=== PATIENT | female | born 1975 | race Caucasian/White ===

== ENCOUNTER 2019-07-04 21:02 | Emergency (ER) | payer MEDICARE, MEDICAID ==
--- NOTE | 2019-07-04 21:56 | EDM.PDOC ---
ED HPI GENERAL MEDICAL PROBLEM - General Chief Complaint: Respiratory Problem Stated Complaint: SOB Time Seen by Provider: 07/04/19 21:10 Source of Information: Reports: Patient, EMS History Limitations: Reports: No Limitations - History of Present Illness INITIAL COMMENTS - FREE TEXT/NARRATIVE: 44-year-old female arrives by ambulance with persistent shortness of breath. She was seen in the clinic a few days ago, started on antibiotic and prednisone. She doesn't feel like she is improving and wanted to be seen. She lives in a snf in the [facility]. No fevers or chills. Onset: Gradual Duration: Day(s): (Symptoms for the last 4-5 days) Associated Symptoms: Reports: Cough, Shortness of Breath. Denies: Fever/Chills , Headaches Anterior Chest Pain Score (Numeric/FACES): 5 - Related Data Allergies Allergy/AdvReac Type Severity Reaction Status Date / Time amoxicillin Allergy Cannot Verified 07/04/19 21:47 Remember cephalexin [From Keflex] Allergy Cannot Verified 07/04/19 21:47 Remember chlorhexidine Allergy Cannot Verified 07/04/19 21:47 Remember clindamycin Allergy Cannot Verified 07/04/19 21:47 Remember NSAIDS (Non-Steroidal Allergy Cannot Verified 07/04/19 21:47 Anti-Inflamma Remember olanzapine [From Zyprexa] Allergy Cannot Verified 07/04/19 21:47 Remember Penicillins Allergy Cannot Verified 07/04/19 21:47 Remember quetiapine [From Seroquel] Allergy Cannot Verified 07/04/19 21:47 Remember Sulfa (Sulfonamide Allergy Cannot Verified 07/04/19 21:47 Antibiotics) Remember valproic acid Allergy Cannot Verified 07/04/19 21:47 Remember varenicline [From Chantix] Allergy Cannot Verified 07/04/19 21:47 Remember Home Meds: Home Meds Adapalene [Differin 0.1% Crm] 1 applic TOP BEDTIME 07/04/19 [History] Albuterol Sulfate [Proair Respiclick] 2 puff IH Q4H PRN 07/04/19 [History] Azithromycin [Zithromax] 250 mg PO DAILY 07/04/19 [History] Cholecalciferol (Vitamin D3) [Vitamin D3] 1,000 unit PO DAILY 07/04/19 [History] Dexlansoprazole [Dexilant] 60 mg PO DAILY 07/04/19 [History] Docusate Sodium [Colace] 200 mg PO DAILY 07/04/19 [History] Fexofenadine [Fexofenadine HCl] 180 mg PO BEDTIME 07/04/19 [History] Fluocinonide [Lidex 0.05% Oint] 1 applic TOP BID 07/04/19 [History] Fluticasone Propionate [24 Hour Allergy Relief] 1 spray NS BID 07/04/19 [History ] Fluticasone/Salmeterol [Advair 100-50] 1 puff INH BID 07/04/19 [History] Gabapentin [Neurontin] 300 - 600 mg PO BID 07/04/19 [History] Levothyroxine 125 mcg PO ACBREAKFAST 07/04/19 [History] Lisinopril [Prinivil] 20 mg PO DAILY 07/04/19 [History] Mupirocin Oint [Bactroban Oint] 1 applic TP BID 07/04/19 [History] Naltrexone 50 mg PO BID 07/04/19 [History] Prazosin HCl [Prazosin] 5 mg PO BEDTIME 07/04/19 [History] Ranitidine HCl [Ranitidine] 150 mg PO BID 07/04/19 [History] Spironolactone [Aldactone] 100 mg PO BID 07/04/19 [History] Venlafaxine [Effexor XR] 225 mg PO DAILY 07/04/19 [History] cloNIDine [Catapres] 0.1 mg PO DAILY 07/04/19 [History] cloNIDine [cloNIDine HCl] 0.2 mg PO BEDTIME 07/04/19 [History] cloZAPine [Clozapine] 100 mg PO BID 07/04/19 [History] metroNIDAZOLE [Metrocream] 1 applic TP DAILY 07/04/19 [History] predniSONE [Prednisone] 10 mg PO DAILY 07/04/19 [History] risperiDONE [RisperiDAL] 3 mg PO BID 07/04/19 [History] Past Medical History HEENT History: Reports: Impaired Vision Cardiovascular History: Reports: Hypertension Respiratory History: Reports: Asthma, Sleep Apnea Gastrointestinal History: Reports: GERD Psychiatric History: Reports: Anxiety, Bipolar, Depression, Eating Disorders, PTSD, Other (See Below) Other Psychiatric History: Dependent personality disorder polysubstance abuse Endocrine/Metabolic History: Reports: Hypothyroidism, Obesity/BMI 30+, Other ( See Below) Other Endocrine/Metabolic History: hyperglycemia Dermatologic History: Reports: Other (See Below) Other Dermatologic History: prurigo nodularis Social & Family History - Tobacco Use Smoking Status *Q: Never Smoker Second Hand Smoke Exposure: No - Caffeine Use Caffeine Use: Reports: None - Recreational Drug Use Recreational Drug Use: Yes Drug Use in Last 12 Months: No ED ROS GENERAL - Review of Systems Review Of Systems: See Below Constitutional: Denies: Fever, Chills HEENT: Denies: Throat Pain Respiratory: Reports: Shortness of Breath, Cough Cardiovascular: Reports: Chest Pain (With coughing) GI/Abdominal: Reports: No Symptoms ED EXAM, GENERAL - Physical Exam Exam: See Below Exam Limited By: No Limitations General Appearance: Alert, No Apparent Distress Throat/Mouth: Normal Inspection Respiratory/Chest: No Respiratory Distress, Lungs Clear Cardiovascular: Regular Rate, Rhythm Neurological: Alert, Oriented Psychiatric: Normal Affect, Normal Mood Skin Exam: Warm, Dry Course - Vital Signs Last Recorded V/S: Last Vital Signs Temp 99.5 F 07/04/19 21:08 Pulse 105 H 07/04/19 21:08 Resp 18 07/04/19 21:08 BP 104/64 07/04/19 21:08 Pulse Ox 97 07/04/19 21:08 - Re-Assessments/Exams Free Text/Narrative Re-Assessment/Exam: 07/04/19 21:55 Patient did receive a DuoNeb in route which may have resolved symptoms but at this time her exam and vitals are normal. A two-view chest x-ray was done which was normal as well. Patient was reassured, will be discharged and encouraged to use her albuterol as needed Departure - Departure Time of Disposition: 23:00 Disposition: Home, Self-Care 01 Condition: Good Clinical Impression: Bronchitis - Discharge Information Instructions: Acute Bronchitis, Adult, [id number] Referrals: Margoth Smith MD [Primary Care Provider] - Forms: ED Department Discharge Care Plan Goals: Continue your prescribed medications, and use albuterol inhaler as needed for shortness of breath. Return if not improving satisfactorily and another 2-3 days. Return sooner if worsening despite treatment or you develop other concerns.
--- NOTE | 2019-07-04 22:10 | CRLCR ---
INDICATION: Dyspnea TECHNIQUE: Chest radiograph 2 views COMPARISON: None FINDINGS: Severe degradation of image quality noted due to body habitus. Mediastinum: The mediastinum is normal in appearance. The heart silhouette is normal in size and morphology. Lung: A small focus of airspace opacity is suspected in the right mid lung zone measuring 1.5 cm. No sign of pleural effusion seen. No pneumothorax is identified. Bone and Soft tissue: Unremarkable for age. IMPRESSION: 1. A small focus of airspace opacity is suspected in the right mid lung zone measuring 1.5 cm. This may represent a focus of infectious or inflammatory infiltrate or pneumonitis. Follow-up chest radiograph in 3 months is recommended to document resolution. Dictated by Aaron Guerra MD @ 07/04/2019 10:09:03 PM Dictated by: Aaron Guerra MD @ 07/04/2019 22:09:08 (Electronically Signed)
== END 2019-07-04 23:00 | disposition home or self-care (01) ==
LOC: JP.ED 21:02
DX: J40 Bronchitis, not specified as acute or chronic (principal); I10 Essential (primary) hypertension; J45.909 Unspecified asthma, uncomplicated; F31.9 Bipolar disorder, unspecified; F41.9 Anxiety disorder, unspecified; E03.9 Hypothyroidism, unspecified; E66.9 Obesity, unspecified; Z68.41 Body mass index [BMI] 40.0-44.9, adult; Z79.899 Other long term (current) drug therapy; Z88.0 Allergy status to penicillin; Z88.8 Allergy status to other drugs, medicaments and biological substances; Z88.2 Allergy status to sulfonamides; Z88.1 Allergy status to other antibiotic agents
CPT/HCPCS: 71046; 99284; 99285-25